=== PATIENT | female | born 1970 | race Caucasian/White ===

== ENCOUNTER 2018-08-05 00:37 | Emergency (ER) | payer OTHER ==
[~2018-08-05] VITALS: Ht 170.2 cm; Wt 77.1 kg
[~2018-08-05 00:37] MED LIST: BIRTH CONTROL PILL; BUTALBITAL-APA1 EAC1 PO; GLIPIZIDE 5 MG T5 MG PO; GLUCOPHAGE1000 MG PO; HYDROCHLOROTHIA25 M1; HYDROCHLOROTHIA25 M2 PO; LEVAQUIN 500 M500 M2 PO; PROZAC40 MG PO; VYVANSE70 MG PO; WELLBUTRIN XL300 M1 PO; XANAX XR1 MG PO; [UNRECOGNIZED DRUG - OTHER]
[2018-08-05] MEDS ORDERED: HYDROXYCHLOROQ200 M1 PO (00:51)
[2018-08-05] MEDS ORDERED: LEVEMIR SUBQ (00:51)
[2018-08-05] MEDS ORDERED: HUMALOG100 UNIT/1 SUBQ (00:51)
[2018-08-05] MEDS ORDERED: HYDROCHLOROTHIA25 M2 PO (00:52)
[2018-08-05] MEDS ORDERED: COZAAR 25 MG TA25 M1 PO (00:52)
[2018-08-05] MEDS ORDERED: TOPROL XL25 MG PO (00:52)
[2018-08-05] MEDS ORDERED: SYNTHROID25 MC1 PO (00:52)
[2018-08-05] MEDS ORDERED: HYDROCODONE-AP1 EAC6 PO (01:22)
[2018-08-05] MEDS ORDERED: PENICILLIN VK500 MG PO (01:22)
[2018-08-05 01:30] VITALS: BP 122/68
== END 2018-08-05 01:30 | disposition home or self-care (01) ==
LOC: M.ERS 00:37
DX: K02.9 Dental caries, unspecified (principal); E11.9 Type 2 diabetes mellitus without complications; F32.9 Major depressive disorder, single episode, unspecified; E78.00 Pure hypercholesterolemia, unspecified; Z90.49 Acquired absence of other specified parts of digestive tract; Z98.890 Other specified postprocedural states; Z79.4 Long term (current) use of insulin

== ENCOUNTER 2019-10-18 21:45 | Emergency (ER) | payer OTHER ==
[~2019-10-18] VITALS: Ht 170.2 cm; Wt 70.3 kg
[~2019-10-18 21:45] MED LIST changes: +COZAAR 25 MG TA25 M1 PO; +HUMALOG100 UNIT/1 SUBQ; +HYDROCODONE-AP1 EAC6 PO; +HYDROXYCHLOROQ200 M1 PO; +LEVEMIR SUBQ; +PENICILLIN VK500 MG PO; +SYNTHROID25 MC1 PO; +TOPROL XL25 MG PO
[2019-10-18 22:07] LABS: URINE BILIRUBIN NEGATIVE (Negative); URINE BLOOD NEGATIVE (Negative); URINE CLARITY CLEAR; URINE COLOR YELLOW; URINE GLUCOSE-RANDOM TRACE (Negative); URINE KETONES NEGATIVE (Negative); URINE LEUKOCYTES-REFLEX NEGATIVE (Negative); URINE NITRITE-REFLEX NEGATIVE (Negative); URINE PROTEIN TRACE (Negative); URINE SPECIFIC GRAVITY >= 1.030 (1.005-1.030); URINE UROBILINOGEN 0.2 E.U./dl (0.2-1.0)
[2019-10-18] MEDS ORDERED: LIPITOR40 MG PO (22:09)
[2019-10-18 22:34] LABS: ABSOLUTE BASOPHILS 0.1 thou/uL (0.0-0.2); ABSOLUTE EOSINOPHILS 0.1 thou/uL (0.0-0.7); ABSOLUTE LYMPHOCYTES 1.6 thou/uL (0.8-5.3); ABSOLUTE MONOCYTES 0.6 thou/uL (0.0-1.2); ABSOLUTE NEUTROPHILS 3.6 thou/uL (1.6-8.1); BASOPHILS 0.9 %; EOSINOPHILS 2.2 %; HEMATOCRIT 34.7 % (37.0-47.0); HEMOGLOBIN 11.6 gm/dL (12.0-15.0); LYMPHOCYTES 26.5 %; MCH 27.9 pg (26.0-34.0); MCHC 33.6 g/dL (28.0-37.0); MCV 83.1 fL (80.0-100.0); MONOCYTES 9.7 %; MPV 8.4 fl. (7.2-11.1); NUCLEATED RBCS 0 /100WBC; PLATELET COUNT* 187 thou/uL (150-400); POLYS 60.7 %; RBC 4.17 mil/uL (4.20-5.00); RDW-CV 14.3 % (10.5-14.5); WBC 5.9 thou/uL (4.0-11.0)
[2019-10-18 22:42] LABS: CALCIUM 8.8 mg/dL (8.5-10.1); CREATININE 1.1 mg/dL (0.6-1.3)
[2019-10-18 22:47] LABS: ALBUMIN 3.5 g/dL (3.4-5.0); TOTAL BILIRUBIN 0.5 mg/dL (<0.1-1.0); TOTAL PROTEIN 7.4 g/dL (6.4-8.2)
[2019-10-18 22:51] LABS: POTASSIUM 2.5 mmol/L (3.5-5.1)
[2019-10-19] MEDS ORDERED: HYDROCODON-ACE1 EAC8 PO (03:15)
[2019-10-19] MEDS ORDERED: ZOFRAN ODT4 MG PO (03:15)
[2019-10-19] MEDS ORDERED: POTASSIUM20 PO (03:19)
[2019-10-19 03:29] VITALS: BP 112/58
== END 2019-10-19 03:29 | disposition home or self-care (01) ==
LOC: M.ERS 21:45
PROVIDERS: Emergency Medicine
DX: R10.31 Right lower quadrant pain (principal); R35.0 Frequency of micturition; M54.9 Dorsalgia, unspecified; E11.9 Type 2 diabetes mellitus without complications; F32.9 Major depressive disorder, single episode, unspecified; E78.00 Pure hypercholesterolemia, unspecified; Z90.49 Acquired absence of other specified parts of digestive tract; Z79.4 Long term (current) use of insulin; Z79.899 Other long term (current) drug therapy; Z88.1 Allergy status to other antibiotic agents; Z88.8 Allergy status to other drugs, medicaments and biological substances

== ENCOUNTER 2019-10-25 16:24 | Emergency (ER) | payer OTHER ==
[~2019-10-25] VITALS: Ht 170.2 cm; Wt 70.3 kg
[~2019-10-25 16:24] MED LIST changes: +HYDROCODON-ACE1 EAC8 PO; +LIPITOR40 MG PO; +POTASSIUM20 PO; +ZOFRAN ODT4 MG PO
[2019-10-25 16:40] LABS: URINE BILIRUBIN NEGATIVE (Negative); URINE BLOOD 3+ (Negative); URINE CLARITY CLEAR; URINE COLOR YELLOW; URINE GLUCOSE-RANDOM 3+ (Negative); URINE KETONES NEGATIVE (Negative); URINE LEUKOCYTES-REFLEX NEGATIVE (Negative); URINE NITRITE-REFLEX NEGATIVE (Negative); URINE PROTEIN NEGATIVE (Negative); URINE SPECIFIC GRAVITY 1.015 (1.005-1.030); URINE UROBILINOGEN 0.2 E.U./dl (0.2-1.0)
[2019-10-25 16:55] LABS: ABSOLUTE EOSINOPHILS 0.2 thou/uL (0.0-0.7); ABSOLUTE LYMPHOCYTES 1.3 thou/uL (0.8-5.3); ABSOLUTE MONOCYTES 0.4 thou/uL (0.0-1.2); ABSOLUTE NEUTROPHILS 3.3 thou/uL (1.6-8.1); BASOPHILS 0.8 %; EOSINOPHILS 3.3 %; HEMATOCRIT 36.6 % (37.0-47.0); HEMOGLOBIN 12.2 gm/dL (12.0-15.0); LYMPHOCYTES 25.7 %; MCH 27.8 pg (26.0-34.0); MCHC 33.4 g/dL (28.0-37.0); MCV 83.2 fL (80.0-100.0); MONOCYTES 7.1 %; MPV 9.1 fl. (7.2-11.1); NUCLEATED RBCS 0 /100WBC; PLATELET COUNT* 191 thou/uL (150-400); POLYS 63.1 %; RBC 4.41 mil/uL (4.20-5.00); RDW-CV 14.5 % (10.5-14.5); WBC 5.2 thou/uL (4.0-11.0)
[2019-10-25 16:57] LABS: CASTS None Seen /LPF (None Seen); CRYSTALS None Seen /LPF (None Seen); SQUAMOUS 4-10 Moderate /LPF (0-3); URINE RBC 0-2 Rare /HPF (0-2); URINE WBC-REFLEX 0-5 Rare /HPF (0-5)
[2019-10-25 17:05] LABS: CALCIUM 9.7 mg/dL (8.5-10.1); POTASSIUM 3.6 mmol/L (3.5-5.1)
[2019-10-25 17:09] LABS: ALBUMIN 3.6 g/dL (3.4-5.0); TOTAL BILIRUBIN 0.2 mg/dL (<0.1-1.0); TOTAL PROTEIN 7.4 g/dL (6.4-8.2)
[2019-10-25 18:30] VITALS: BP 100/54
--- NOTE | 2019-10-26 13:21 | EKG ---
[place] [address] ELECTROCARDIOGRAM REPORT Name: BESSY GOMES [facility] [id number] Admission: 10/25/19 Attend Phys: Discharge: 10/25/19 Date of : 74 Date of Service: 10/25/19 1638 Report #: [id number] THIS REPORT FOR: //name// [facility] ED Test Date: 2019-10-25 Test Time: 16:38:12 Pat Name: BESSY GOMES Department: Room: Gender: Signal Helper: : 1970 Requested By: Jeronimo Adan Order Number: [id number] MD: Wagner Larson Measurements Intervals [place] Rate: 63 P: 49 SD: 144 QRS: 55 QRSD: 92 T: 61 QT: 421 QTc: 431 Interpretive Statements Sinus rhythm No previous ECG available for comparison Electronically Signed On 10-26-2019 13:21:35 CDT by Wagner Larson [email or web address] <ELECTRONICALLY SIGNED> By: Wagner Larson MD, [facility] 10/26/19 1321 1638 1638 Wagner Larson MD, FACC /EPI
== END 2019-10-25 18:31 | disposition home or self-care (01) ==
LOC: M.ERS 16:24
PROVIDERS: Family Medicine
DX: R41.82 Altered mental status, unspecified (principal); R10.31 Right lower quadrant pain; E11.9 Type 2 diabetes mellitus without complications; E78.00 Pure hypercholesterolemia, unspecified; F32.9 Major depressive disorder, single episode, unspecified; Z90.49 Acquired absence of other specified parts of digestive tract; Z98.890 Other specified postprocedural states; Z88.8 Allergy status to other drugs, medicaments and biological substances